=== PATIENT | female | born 1970 | race Caucasian/White ===

== ENCOUNTER 2024-06-29 19:24 | Emergency (ER) | payer BC ==
[~2024-06-29] VITALS: Ht 154.9 cm; Wt 61.2 kg
[2024-06-29 19:24] VITALS: PULSE 80; RESP 20; TEMP 99.8
[2024-06-29] MEDS ORDERED: AZITHROMYCIN250 MG PO (19:49)
[2024-06-29 20:14] VITALS: BP 151/78; PULSE 78; RESP 18; TEMP 99.2; O2SAT 95
== END 2024-06-29 20:18 | disposition home or self-care (01) ==
LOC: FSED 19:43
DX: R50.9 Fever, unspecified (principal); J06.9 Acute upper respiratory infection, unspecified; Z11.52 Encounter for screening for COVID-19; F17.210 Nicotine dependence, cigarettes, uncomplicated
CPT/HCPCS: 0223U; 87400; 99283